=== PATIENT | female | born 1950 | race Caucasian/White ===

== ENCOUNTER → 2017-02-22 | Outpatient (CLI) | payer MEDICARE, MEDICAID | LOC: LAB 10:05 | DX: E03.9 Hypothyroidism, unspecified (principal) ==

== ENCOUNTER 2017-08-03 14:36 | Emergency (ER) | payer MEDICARE, MEDICAID ==
[~2017-08-03] VITALS: Ht 154.9 cm; Wt 54.4 kg
--- OUTSIDE RECORDS SUMMARY | 2017-08-03 14:48 | External Medical Summary Rpt | CCD ---
Author Author , CHARIS HER Address Unknown Phone Purpose Continuity of Care Document - 02-22-2017 through 2016 Problems Code Diagnosis DOS Provider Status E03.9 HYPOTHYROID ISM, UNSPECIFIED
--- OUTSIDE RECORDS SUMMARY | 2017-08-03 14:49 | External Medical Summary Rpt ---
Author Author ARDEN Bah, [employer] Address Unknown Phone Unavailable Results Thyrotropin [Units/volume] in Serum or Plasma Observa Value Referen Units Interpr Notes Date tion ce etation Range Thyrotrop 0.358 - uIU/ml No No Feb 22 in 3.740 informati informati 2017 [Units/vo on in on in 10:07 AM lume] in source source Serum or data data Plasma
--- OUTSIDE RECORDS SUMMARY | 2017-08-03 14:49 | External Medical Summary Rpt | CCD ---
Demographics Preferred Language Nepalese Marital Status Unknown Presybeterian Affiliation Unknown Race Unknown Ethnic Group Unknown Author Author , ARDEN HER Address Unknown Phone Immunization No patient found.
--- OUTSIDE RECORDS SUMMARY | 2017-08-03 14:49 | External Medical Summary Rpt | CCD ---
Author Author [employer] Address Unknown Phone Unavailable Purpose Continuity of Care Document - through 2016
--- OUTSIDE RECORDS SUMMARY | 2017-08-03 14:49 | External Medical Summary Rpt | CCD ---
Demographics Preferred Language Syrian Marital Status Unknown Sabianism Affiliation Unknown Race Unknown Ethnic Group Unknown Author Author , ARDEN HER Address Unknown Phone Immunization No patient found.
[2017-08-03] MEDS ORDERED: METOPROLOL SUCC25 M2 PO (15:31)
[2017-08-03] MEDS ORDERED: LEVOTHYROXINE0.15 M1 PO (15:32)
[2017-08-03 16:31] VITALS: BP 155/78
--- NOTE | 2017-08-03 16:32 | Urgent Treatment Center Report ---
History of Present Issue Date/Time Seen by Provider 08/03/17 1600 Visit Reason Pt arrived:Walked Presenting Problem:NEIGHBOR IS WITH PT. NEIGHBOR STATES THAT THE PT FELL AROUND 1030 AND HIT HER HEAD THIS AM ON A MARBLE SLAB THAT THEY WERE MAKING CANDY ON. PT HAD NO LOC AND NO CHANGES SINCE THE FALL. PT DOES HAVE A LARGE BRUISED AREA ABOVE THE LEFT EYE WITH SWELLING. Location if Accident:Home Onset of symptoms date/time:08/03/1701/13/1030 or onset unknown for: Have you (or family members/close friends) recently traveled outside the [place]? N If Yes, where/when: Have you had exposure to infectious disease within the past month? TB? Other? Specify: Initially here w/ neighbor but then brother in law arrived before I got to patient. Pt w/ severe mental retardation. Lives w/ sister and brother in law since parents more then 10 years ago. Sister currently in ICU at "very sick" per neighbor. Pt was at home this morning, neighbor there watching her, when she fell on the marble floor. Was in the entry way trying to get candy (NOT making candy as reported in triage note) from a dish. Neighbor was sitting nearby in another room. [place] the fall. Pt hit left side of forehead on marble. This is their only concern. Worried due to the purple and black colors appearing on forehead now. Neighbor reports she was there almost immediately and no LOC. pt has c/o pain by rubbing head and saying ouch "here and there" but no persistant complaints of pain. No treatment prior to arrival. Patient has been herself throughout the day. No more irritable, confused, unhappy. Normal appetite today. Wanted to take her usual afternoon nap but neighbor was afraid to let her fall asleep "because she had hit her head and they always say keep them awake". Pt unhappy about being at hospital. Brother in law reports she doesn't do well and absolutely no large machines or anything that makes noise. Adament no xrays. Now that he is here and seeing how pt is acting, he is ready to take her home. Source family Exam Limitations severe mental retardation, minimal communication skills, focused on leaving clinic ALLERGIES Coded Allergies: No Known Allergies (08/03/17) Home Medications Reported Medications Metoprolol Succinate 25 MG PO DAILY #30 Levothyroxine Sodium 0.15 MG PO DAILY #30 History Medical History General Hypertension? Yes COPD? No Asthma? No Thyroid Problems? Yes CVA? No Seizures? No TB? No Immunization HX DT/Tetanus 5-10 Years Ago Surgical Hx Previous Surgery?N Social History Smoking Hx Smoker: Never Smoker Tobacco: No Alcohol Alcohol: No Review of Systems All Other Systems Reviewed and Negative (minimal, per brother in law) Constitutional denies malaise, denies weakness Eyes denies inflammation, denies pain ("not that she acts like"), denies photophobia, denies other (drainage) ENT denies: ear discharge, epistaxis, other (no new loose or missing teeth). Respiratory denies shortness of breath Cardiovascular denies syncope Gastrointestinal denies nausea, denies vomiting, denies other (change appetite) Musculoskeletal denies other (no sign of pain except forehed) Skin see HPI, change in color, lumps (left side forehead) Psychiatric/Neurological see HPI Physical Exam Vital Signs Vital Signs Date Time Temp Pulse Resp B/P Pulse O2 O2 Flow FiO2 Ox Delivery Rate 08/03 1631 98.0 85 18 155/78 99 08/03 1528 98.0 87 20 158/77 99 General Appearance no apparent distress (focused on leaving clinic), ambulating, pacing at times, mumblings, obvious large hematoma left forehead that pt rubs at times Eye Exam - bilateral eye normal exam (x/ unable to test vision) Neck non-tender, supple, full range of motion Respiratory Status No: respiratory distress. Cardiovascular no peripheral edema Back no tenderness, no limited ROM Extremities non-tender (x4), normal range of motion (x4), normal inspection (x4) Strength 5 Upper Ext (L), 5 Upper Ext (R), 5 Lower Ext (L), 5 Lower Ext (R) Neurologic alert, neuro exam complicated but attempted, pt's behavior to each "baseline" per brother in law and neighbor. They see no concerns Skin intact, large deep purple hematoma to left side forehead Medical Decision Making LABS/Meds/Orders Pt receiving controlled substance in ED? No Consult MD Physician Consult Consult/PCP Dr. Carolina, ROSSY NICKERSON Time Called 1620 Reason Pt. Condition Comments Discussed PMHx, HPI and exam. Can not see pt at this time but if no LOC, vomiting and overall, baseline then doesn't feel CT necessary. Progress [facility] Progress Notes Date 08/09/17 Time 1605 Comment discussed the possibility of facial fractures or even head trauma considering the degree of the fall and exam. Brother in law adament no xrays or CT without sedation and with her behavior today, doesn't feel that is warranted. Discussed ativan just to calm her enough for facial xrays, although not as specific. he is refusing all, wants to take her home and follow up with primary care if necessary. Does agree to return to er for new or worsening symptoms. Departure Departure Time of Disposition 1628 Disposition DC Home or Self Care(routine) Clinical Impression Primary Impression: Closed head injury without loss of consciousness Qualifiers: Encounter type: initial encounter Qualified Code: S09.90XA - Unspecified injury of head, initial encounter Secondary Impressions: History of mental retardation Condition STABLE Referrals Juan NICKERSON,Pranav Easley (Family) Return to ER/call 911 immediately for new or worsening symptoms. Call Dr. martinez tomorrow and schedule follow up appointment. Patient Instructions DI for Closed Head Injury Additional Instructions Can not rule out facial or skull fractures without xrays or CT scan Brother in law understands and states + understanding. Wants to take her home, feed her supper and let her rest. Will watch her closely and return immediately for any new changes. Agrees to follow up with Dr. Martinez in the morning. Discharge Counseling Counseled pt/family regarding diagnosis, home care, follow up needs at [id number]
== END 2017-08-03 16:37 | disposition home or self-care (01) ==
LOC: UTC 14:36
DX: S09.90XA Unspecified injury of head, initial encounter (principal); F79 Unspecified intellectual disabilities; I10 Essential (primary) hypertension; W01.198A Fall on same level from slipping, tripping and stumbling with subsequent striking against other object, initial encounter; Z91.81 History of falling; Y92.019 Unspecified place in single-family (private) house as the place of occurrence of the external cause